=== PATIENT | female | born 1980 | race Asian ===

== ENCOUNTER 2018-03-06 07:11 | Inpatient (IN) | payer BC ==
[~2018-03-06] VITALS: Ht 160 cm; Wt 84.1 kg
[2018-03-06 08:12] LABS: BASOPHILS # (AUTO) 0.05 x10^3/uL (0-0.1); BASOPHILS % (AUTO) 1 % (0-1); EOSINOPHILS # (AUTO) 0.09 x10^3/uL (0-0.4); EOSINOPHILS % (AUTO) 1 % (1-7); LYMPHOCYTES # (AUTO) 2.66 x10^3/uL (1-3.4); LYMPHOCYTES % (AUTO) 29 % (22-44); MD NO; MEAN CORPUSCULAR HEMOGLOBIN 31.7 pg (27.0-34.8); MEAN CORPUSCULAR HGB CONC 34.1 g/dL (32.4-35.8); MEAN PLATELET VOLUME 10.9 fL (7.4-10.4); MONOCYTES # (AUTO) 0.49 x10^3/uL (0.2-0.8); MONOCYTES % (AUTO) 5 % (2-9); NEUTROPHILS # (AUTO) 5.91 x10^3/uL (1.8-6.8); NEUTROPHILS % (AUTO) 64 % (42-75); PLATELET COUNT 208 x10^3/uL (130-400); RED BLOOD COUNT 4.34 x10^6/uL (3.82-5.3); RED CELL DISTRIBUTION WIDTH 12.8 % (9.6-15.2)
[2018-03-06] MEDS ORDERED: LABETALOL 5MG/ML, 20ML ONE (08:15)
[2018-03-06] MEDS: LACTATED RINGERS 1,000 ML IV SCH ×2 (08:20→20:31)
[2018-03-06 08:23] LABS: MICROSCOPIC INDICATED
[2018-03-06 08:24] LABS: ALANINE AMINOTRANSFERASE 23 U/L (12-78); ALBUMIN 2.1 g/dL (3.4-5.0); ANION GAP 7 mmol/L (5-15); CALCIUM 9.1 mg/dL (8.5-10.1); CHLORIDE 115 mmol/L (98-107)
[2018-03-06 08:27] VITALS: BP 174/110
[2018-03-06 08:27] LABS: ALKALINE PHOSPHATASE 78 U/L (45-117); BILIRUBIN, DIRECT < 0.1 mg/dL (0.1-0.2); BILIRUBIN,TOTAL 0.2 mg/dL (0.2-1.0); CREATININE 0.85 mg/dL (0.55-1.02); TOTAL PROTEIN 5.1 g/dL (6.4-8.2)
[2018-03-06] MEDS ORDERED: LABETALOL 20 MG/4 ML IVPush ONE (08:30)
[2018-03-06] MEDS ORDERED: LABETALOL 5MG/ML, 20ML IVPush ONE (08:30)
[2018-03-06] MEDS ORDERED: PLEASE ENTER HEIGHT AND WEIGHT MC SCH (08:30)
[2018-03-06] MEDS ORDERED: BETAMETHASONE 6 MG/ML, 5ML IM ONE (09:17)
[2018-03-06] MEDS ORDERED: MAGNESIUM SULF. PMX 20GM/500ML 500 ML IV ONE ×2 (09:17→14:22)
[2018-03-06] MEDS ORDERED: MAGNESIUM SULFATE PMX 4GM/100M 100 ML ONE (09:17)
[2018-03-06] MEDS ORDERED: LACTATED RINGERS 1,000 ML IV PRN (09:25)
[2018-03-06] MEDS ORDERED: MAGNESIUM SULFATE PMX 4GM/100M 100 ML IVPB ONE (09:30)
[2018-03-06] MEDS ORDERED: LABETALOL 200 MG TABLET PO ONE (09:30)
[2018-03-06] MEDS ORDERED: LABETALOL 200 MG TABLET ONE ×2 (09:34→20:28)
[2018-03-06] MEDS: BETAMETHASONE 6 MG/ML, 5ML IM SCH (09:43)
[2018-03-06] MEDS: MAGNESIUM SULF. PMX 20GM/500ML 500 ML IV SCH ×3 (10:00→22:28)
[2018-03-06] MEDS ORDERED: ACETAMINOPHEN 325 MG TABLET ONE (18:41)
[2018-03-06] MEDS: ACETAMINOPHEN 325 MG TABLET PO PRN (18:43)
[2018-03-06] MEDS: LABETALOL 200 MG TABLET PO SCH (20:30)
[2018-03-07 03:12] LABS: BASOPHILS # (AUTO) 0.03 x10^3/uL (0-0.1); BASOPHILS % (AUTO) 0 % (0-1); EOSINOPHILS % (AUTO) 0 % (1-7); LYMPHOCYTES # (AUTO) 2.27 x10^3/uL (1-3.4); LYMPHOCYTES % (AUTO) 19 % (22-44); MD NO; MEAN CORPUSCULAR HEMOGLOBIN 32.2 pg (27.0-34.8); MEAN CORPUSCULAR HGB CONC 34.6 g/dL (32.4-35.8); MEAN CORPUSCULAR VOLUME 93.3 fL (80-100); MEAN PLATELET VOLUME 11.3 fL (7.4-10.4); MONOCYTES # (AUTO) 0.27 x10^3/uL (0.2-0.8); MONOCYTES % (AUTO) 2 % (2-9); NEUTROPHILS # (AUTO) 9.22 x10^3/uL (1.8-6.8); NEUTROPHILS % (AUTO) 78 % (42-75); PLATELET COUNT 228 x10^3/uL (130-400); RED BLOOD COUNT 4.12 x10^6/uL (3.82-5.3); RED CELL DISTRIBUTION WIDTH 13.2 % (9.6-15.2)
[2018-03-07 03:15] LABS: ALBUMIN 2.1 g/dL (3.4-5.0); ANION GAP 9 mmol/L (5-15); CALCIUM 8.3 mg/dL (8.5-10.1); CHLORIDE 111 mmol/L (98-107)
[2018-03-07 03:18] LABS: ALANINE AMINOTRANSFERASE 23 U/L (12-78); ALKALINE PHOSPHATASE 76 U/L (45-117); BILIRUBIN,TOTAL 0.2 mg/dL (0.2-1.0); TOTAL PROTEIN 5.4 g/dL (6.4-8.2)
[2018-03-07] MEDS: LACTATED RINGERS 1,000 ML IV SCH ×2 (08:12→16:12)
[2018-03-07] MEDS ORDERED: LABETALOL 200 MG TABLET ONE ×3 (08:34→21:59)
[2018-03-07] MEDS: LABETALOL 200 MG TABLET PO SCH ×2 (08:50→22:04)
[2018-03-07] MEDS ORDERED: PRENATAL VIT/IRON/FA 1 EACH TABLET PO SCH (09:00)
[2018-03-07] MEDS ORDERED: MAGNESIUM SULF. PMX 20GM/500ML 500 ML IV ONE (09:06)
[2018-03-07] MEDS: BETAMETHASONE 6 MG/ML, 5ML IM SCH (09:33)
[2018-03-07] MEDS: MAGNESIUM SULF. PMX 20GM/500ML 500 ML IV SCH (09:39)
[2018-03-07 11:31] VITALS: BP 143/93
[2018-03-07] MEDS ORDERED: LABETALOL 200 MG TABLET PO ONE (16:30)
[2018-03-07] MEDS ORDERED: DIPHENHYDRAMINE 25 MG CAPSULE ONE (21:13)
[2018-03-07] MEDS ORDERED: DOCUSATE 100 MG CAPSULE ONE (21:13)
[2018-03-07] MEDS: DOCUSATE 100 MG CAPSULE PO SCH (21:16)
[2018-03-07] MEDS: DIPHENHYDRAMINE 25 MG CAPSULE PO PRN (21:16)
[2018-03-08] MEDS: LACTATED RINGERS 1,000 ML IV SCH ×4 (00:12→16:12)
[2018-03-08] MEDS ORDERED: MAGNESIUM SULF. PMX 20GM/500ML 500 ML IV ONE (05:54)
[2018-03-08] MEDS ORDERED: LABETALOL 200 MG TABLET ONE ×3 (05:54→21:44)
[2018-03-08 05:58] LABS: BASOPHILS # (AUTO) 0.03 x10^3/uL (0-0.1); BASOPHILS % (AUTO) 0 % (0-1); EOSINOPHILS % (AUTO) 0 % (1-7); LYMPHOCYTES # (AUTO) 2.05 x10^3/uL (1-3.4); LYMPHOCYTES % (AUTO) 14 % (22-44); MD NO; MEAN CORPUSCULAR HEMOGLOBIN 32.3 pg (27.0-34.8); MEAN CORPUSCULAR HGB CONC 34.5 g/dL (32.4-35.8); MEAN CORPUSCULAR VOLUME 93.7 fL (80-100); MEAN PLATELET VOLUME 11.1 fL (7.4-10.4); MONOCYTES # (AUTO) 0.59 x10^3/uL (0.2-0.8); MONOCYTES % (AUTO) 4 % (2-9); NEUTROPHILS # (AUTO) 12.14 x10^3/uL (1.8-6.8); NEUTROPHILS % (AUTO) 82 % (42-75); PLATELET COUNT 229 x10^3/uL (130-400); RED BLOOD COUNT 3.95 x10^6/uL (3.82-5.3); RED CELL DISTRIBUTION WIDTH 13.5 % (9.6-15.2)
[2018-03-08] MEDS: MAGNESIUM SULF. PMX 20GM/500ML 500 ML IV SCH (06:04)
[2018-03-08] MEDS: LABETALOL 200 MG TABLET PO SCH ×3 (06:07→21:49)
[2018-03-08 06:11] LABS: ALBUMIN 2.1 g/dL (3.4-5.0); ANION GAP 10 mmol/L (5-15); CHLORIDE 112 mmol/L (98-107)
[2018-03-08 06:15] LABS: ALANINE AMINOTRANSFERASE 21 U/L (12-78); ALKALINE PHOSPHATASE 70 U/L (45-117); BILIRUBIN,TOTAL 0.2 mg/dL (0.2-1.0); CREATININE 0.87 mg/dL (0.55-1.02); TOTAL PROTEIN 5.2 g/dL (6.4-8.2)
[2018-03-08] MEDS: PRENATAL VIT/IRON/FA 1 EACH TABLET PO SCH (09:00)
[2018-03-08] MEDS: DOCUSATE 100 MG CAPSULE PO SCH ×2 (09:00→21:49)
[2018-03-08 20:30] VITALS: BP 152/78
[2018-03-08] MEDS ORDERED: DOCUSATE 100 MG CAPSULE ONE (21:44)
[2018-03-08] MEDS ORDERED: DIPHENHYDRAMINE 25 MG CAPSULE ONE (21:44)
[2018-03-08] MEDS: DIPHENHYDRAMINE 25 MG CAPSULE PO PRN (21:49)
[2018-03-09] MEDS: LACTATED RINGERS 1,000 ML IV SCH ×3 (00:12→16:12)
[2018-03-09 00:41] VITALS: BP 141/78
[2018-03-09] MEDS ORDERED: LABETALOL 200 MG TABLET ONE ×4 (05:18→21:13)
[2018-03-09] MEDS: LABETALOL 200 MG TABLET PO SCH ×3 (05:31→21:30)
[2018-03-09 05:37] VITALS: BP 137/93
[2018-03-09 05:47] LABS: BASOPHILS # (AUTO) 0.05 x10^3/uL (0-0.1); BASOPHILS % (AUTO) 0 % (0-1); EOSINOPHILS # (AUTO) 0.04 x10^3/uL (0-0.4); EOSINOPHILS % (AUTO) 0 % (1-7); LYMPHOCYTES # (AUTO) 3.36 x10^3/uL (1-3.4); LYMPHOCYTES % (AUTO) 25 % (22-44); MD NO; MEAN CORPUSCULAR HEMOGLOBIN 32.2 pg (27.0-34.8); MEAN CORPUSCULAR HGB CONC 34.2 g/dL (32.4-35.8); MEAN CORPUSCULAR VOLUME 94.2 fL (80-100); MEAN PLATELET VOLUME 11.2 fL (7.4-10.4); MONOCYTES # (AUTO) 0.83 x10^3/uL (0.2-0.8); MONOCYTES % (AUTO) 6 % (2-9); NEUTROPHILS # (AUTO) 9.15 x10^3/uL (1.8-6.8); NEUTROPHILS % (AUTO) 68 % (42-75); PLATELET COUNT 215 x10^3/uL (130-400)
[2018-03-09 05:50] LABS: CHLORIDE 114 mmol/L (98-107)
[2018-03-09 05:57] LABS: ALANINE AMINOTRANSFERASE 24 U/L (12-78); ALBUMIN 1.9 g/dL (3.4-5.0); ALKALINE PHOSPHATASE 68 U/L (45-117); BILIRUBIN,TOTAL 0.2 mg/dL (0.2-1.0); CREATININE 0.98 mg/dL (0.55-1.02); TOTAL PROTEIN 4.9 g/dL (6.4-8.2)
[2018-03-09 06:20] LABS: ANION GAP 9 mmol/L (5-15)
[2018-03-09 07:07] LABS: MICROSCOPIC INDICATED
[2018-03-09 07:15] LABS: CREATININE,URINE RANDOM 82.4 mg/dL
[2018-03-09] MEDS: PRENATAL VIT/IRON/FA 1 EACH TABLET PO SCH (09:00)
[2018-03-09] MEDS: DOCUSATE 100 MG CAPSULE PO SCH ×2 (09:00→20:15)
[2018-03-09] MEDS ORDERED: DIPHENHYDRAMINE 25 MG CAPSULE PO PRN (13:30)
[2018-03-09] MEDS ORDERED: DIPHENHYDRAMINE 25 MG CAPSULE ONE ×2 (13:45→21:13)
[2018-03-09] MEDS: DIPHENHYDRAMINE 25 MG CAPSULE PO PRN ×2 (13:51→21:30)
[2018-03-09 19:30] VITALS: BP 142/85
[2018-03-09] MEDS: MAGNESIUM SULF. PMX 20GM/500ML 500 ML IV SCH (21:01)
[2018-03-10] MEDS: LACTATED RINGERS 1,000 ML IV SCH ×3 (00:12→21:14)
[2018-03-10 03:34] VITALS: BP 152/76
[2018-03-10] MEDS ORDERED: LABETALOL 200 MG TABLET ONE (05:34)
[2018-03-10] MEDS: LABETALOL 200 MG TABLET PO SCH (05:35)
[2018-03-10 05:56] LABS: BASOPHILS # (AUTO) 0.04 x10^3/uL (0-0.1); BASOPHILS % (AUTO) 0 % (0-1); EOSINOPHILS # (AUTO) 0.14 x10^3/uL (0-0.4); EOSINOPHILS % (AUTO) 1 % (1-7); LYMPHOCYTES # (AUTO) 3.52 x10^3/uL (1-3.4); LYMPHOCYTES % (AUTO) 28 % (22-44); MD NO; MEAN CORPUSCULAR HEMOGLOBIN 32.7 pg (27.0-34.8); MEAN CORPUSCULAR VOLUME 93.4 fL (80-100); MEAN PLATELET VOLUME 11.1 fL (7.4-10.4); MONOCYTES # (AUTO) 1.06 x10^3/uL (0.2-0.8); MONOCYTES % (AUTO) 9 % (2-9); NEUTROPHILS % (AUTO) 62 % (42-75); PLATELET COUNT 199 x10^3/uL (130-400); RED BLOOD COUNT 3.98 x10^6/uL (3.82-5.3); RED CELL DISTRIBUTION WIDTH 13.1 % (9.6-15.2)
[2018-03-10 06:00] LABS: ALBUMIN 1.8 g/dL (3.4-5.0); ANION GAP 9 mmol/L (5-15); CALCIUM 8.4 mg/dL (8.5-10.1); CHLORIDE 115 mmol/L (98-107)
[2018-03-10 06:03] LABS: ALANINE AMINOTRANSFERASE 26 U/L (12-78); ALKALINE PHOSPHATASE 67 U/L (45-117); BILIRUBIN,TOTAL 0.4 mg/dL (0.2-1.0); CREATININE 0.86 mg/dL (0.55-1.02); TOTAL PROTEIN 4.6 g/dL (6.4-8.2)
[2018-03-10 06:39] VITALS: BP 149/86
[2018-03-10] MEDS ORDERED: LABETALOL 100 MG TABLET ONE (07:54)
[2018-03-10] MEDS ORDERED: LABETALOL 100 MG TABLET PO SCH (09:00)
[2018-03-10] MEDS ORDERED: LABETALOL 300 MG TABLET ONE (13:48)
[2018-03-10] MEDS: LABETALOL 300 MG TABLET PO SCH ×2 (13:49→22:00)
[2018-03-10] MEDS ORDERED: LABETALOL 5MG/ML, 20ML IVPush ONE ×2 (16:00)
[2018-03-10] MEDS ORDERED: hydrALAzine 20 MG/ML, 1ML IVPush ONE (16:00)
[2018-03-10] MEDS ORDERED: LABETALOL 20 MG/4 ML IVPush ONE (16:00)
[2018-03-10] MEDS ORDERED: LABETALOL 5MG/ML, 20ML ONE (16:24)
[2018-03-10] MEDS ORDERED: hydrALAzine 20 MG/ML, 1ML ONE (16:46)
[2018-03-10] MEDS ORDERED: hydrALAzine 20 MG/ML, 1ML IV ONE ×2 (17:00→17:30)
[2018-03-10 17:50] LABS: BASOPHILS # (AUTO) 0.06 x10^3/uL (0-0.1); BASOPHILS % (AUTO) 0 % (0-1); EOSINOPHILS # (AUTO) 0.22 x10^3/uL (0-0.4); EOSINOPHILS % (AUTO) 2 % (1-7); LYMPHOCYTES # (AUTO) 3.87 x10^3/uL (1-3.4); LYMPHOCYTES % (AUTO) 29 % (22-44); MD NO; MEAN CORPUSCULAR HEMOGLOBIN 32.5 pg (27.0-34.8); MEAN CORPUSCULAR HGB CONC 34.5 g/dL (32.4-35.8); MEAN PLATELET VOLUME 11.1 fL (7.4-10.4); MONOCYTES # (AUTO) 1.22 x10^3/uL (0.2-0.8); MONOCYTES % (AUTO) 9 % (2-9); NEUTROPHILS # (AUTO) 7.85 x10^3/uL (1.8-6.8); NEUTROPHILS % (AUTO) 59 % (42-75); PLATELET COUNT 207 x10^3/uL (130-400); RED BLOOD COUNT 4.06 x10^6/uL (3.82-5.3); RED CELL DISTRIBUTION WIDTH 13.3 % (9.6-15.2)
[2018-03-10] MEDS ORDERED: MAGNESIUM SULF. PMX 20GM/500ML 500 ML IV ONE (18:00)
[2018-03-10 18:02] LABS: ALANINE AMINOTRANSFERASE 29 U/L (12-78); ALBUMIN 1.9 g/dL (3.4-5.0); ANION GAP 7 mmol/L (5-15); CALCIUM 9.2 mg/dL (8.5-10.1); CHLORIDE 114 mmol/L (98-107); CREATININE 0.89 mg/dL (0.55-1.02)
[2018-03-10 18:04] LABS: ALKALINE PHOSPHATASE 73 U/L (45-117); BILIRUBIN,TOTAL 0.2 mg/dL (0.2-1.0)
[2018-03-10] MEDS ORDERED: LACTATED RINGERS 1,000 ML IV SCH (18:06)
[2018-03-10] MEDS ORDERED: OXYTOCIN 30U/ 0.9% NaCL 500ML 500 ML IV SCH ×2 (18:06→21:14)
[2018-03-10 18:07] LABS: BILIRUBIN, DIRECT < 0.1 mg/dL (0.1-0.2)
[2018-03-10] MEDS ORDERED: NEWBORN KIT ONE (18:21)
[2018-03-10] MEDS ORDERED: SODIUM CITRATE/CITRIC ACID 30 ML UDC PO ONE (18:30)
[2018-03-10] MEDS ORDERED: MAGNESIUM SULFATE 6 GM in SODIUM CHLORIDE 0.9% 150 ML IV ONE (18:30)
[2018-03-10] MEDS ORDERED: LACTATED RINGERS 1,000 ML IVBOLUS ONE (18:30)
[2018-03-10] MEDS ORDERED: METOCLOPRAMIDE 5 MG/ML, 2ML IV ONE (18:30)
[2018-03-10] MEDS ORDERED: ONDANSETRON 2MG/ML, 2ML ONE ×2 (18:31→21:36)
[2018-03-10] MEDS: MAGNESIUM SULF. PMX 20GM/500ML 500 ML IV SCH (18:34)
[2018-03-10] MEDS ORDERED: ONDANSETRON 2MG/ML, 2ML IVPush ONE (19:00)
[2018-03-10] MEDS ORDERED: METOCLOPRAMIDE 5 MG/ML, 2ML ONE (19:24)
[2018-03-10] MEDS ORDERED: SODIUM CITRATE/CITRIC ACID 30 ML UDC ONE (19:24)
[2018-03-10] MEDS ORDERED: MISOPROSTOL 200 MCG TABLET ONE (19:50)
[2018-03-10] MEDS ORDERED: morphine SULFATE/PF 0.5 MG/ML, 10ML ONE (20:31)
[2018-03-10] MEDS ORDERED: morphine SULFATE 10 MG/ML, 1ML IVPush PRN (21:30)
[2018-03-10] MEDS ORDERED: SIMETHICONE 80 MG CHEW TAB PO PRN (21:30)
[2018-03-10] MEDS ORDERED: OXYcodone IR 5MG TABLET PO PRN (21:30)
[2018-03-10] MEDS ORDERED: MISOPROSTOL 200 MCG TABLET PR PRN (21:30)
[2018-03-10] MEDS ORDERED: ONDANSETRON 2MG/ML, 2ML IV PRN (21:30)
[2018-03-10] MEDS ORDERED: MEASLES,MUMPS&RUBELLA VACC/PF 0.5 ML SQ-VACC PRN (21:30)
[2018-03-10] MEDS ORDERED: RHOGAM FROM BLOOD BANK 1 NOTE EA IM/IV ONE (21:30)
[2018-03-10] MEDS ORDERED: CALCIUM CARBONATE 500 MG TAB.CHEW PO PRN (21:30)
[2018-03-10] MEDS ORDERED: IBUPROFEN 600 MG TABLET PO PRN (21:30)
[2018-03-10] MEDS ORDERED: DIPH,PERTUSS(ACELL),TET VAC/PF NC IM-VACC PRN (21:30)
[2018-03-10] MEDS ORDERED: WATER-INJECTION,STERILE 10 ML IV ONE (21:36)
[2018-03-10] MEDS ORDERED: OXYTOCIN 10 UNITS/ML, 1ML ONE (21:36)
[2018-03-10] MEDS ORDERED: PHENYLEPHRINE 10 MG/ML ONE (21:36)
[2018-03-10] MEDS ORDERED: EPHEDRINE 50 MG/ML, 1ML ONE (21:36)
[2018-03-10] MEDS ORDERED: CEFAZOLIN 1,000 MG ONE (21:36)
[2018-03-10] MEDS ORDERED: GLYCOPYRROLATE 0.4 MG/2 ML, 2ML ONE ×2 (21:36)
[2018-03-10] MEDS ORDERED: DIPHENHYDRAMINE 50 MG/ML, 1ML ONE (21:37)
[2018-03-10] MEDS ORDERED: OXYTOCIN 30U/ 0.9% NaCL 500ML 500 ML ONE (22:41)
[2018-03-10] MEDS ORDERED: KETOROLAC 30 MG/1 ML ONE (22:48)
[2018-03-10] MEDS: KETOROLAC 30 MG/1 ML IV SCH (22:49)
[2018-03-11] MEDS ORDERED: MAGNESIUM SULF. PMX 20GM/500ML 500 ML IV ONE ×2 (01:13→12:19)
[2018-03-11] MEDS: MAGNESIUM SULF. PMX 20GM/500ML 500 ML IV SCH (01:16)
[2018-03-11] MEDS ORDERED: OXYcodone/APAP 5/325MG TABLET ONE ×2 (02:43→18:19)
[2018-03-11] MEDS: OXYcodone/APAP 5/325MG TABLET PO PRN ×2 (02:45→18:21)
[2018-03-11] MEDS ORDERED: KETOROLAC 30 MG/1 ML ONE ×4 (05:05→22:25)
[2018-03-11] MEDS: KETOROLAC 30 MG/1 ML IV SCH ×4 (05:10→22:29)
[2018-03-11] MEDS: LACTATED RINGERS 1,000 ML IV SCH ×5 (05:14→21:14)
[2018-03-11] MEDS ORDERED: LABETALOL 300 MG TABLET ONE ×3 (05:36→22:06)
[2018-03-11] MEDS: LABETALOL 300 MG TABLET PO SCH ×3 (05:39→22:29)
[2018-03-11 06:05] LABS: ALBUMIN 1.9 g/dL (3.4-5.0); ANION GAP 9 mmol/L (5-15); CALCIUM 8.6 mg/dL (8.5-10.1); CHLORIDE 109 mmol/L (98-107); CREATININE 0.84 mg/dL (0.55-1.02)
[2018-03-11 06:09] LABS: MEAN CORPUSCULAR HEMOGLOBIN 32.8 pg (27.0-34.8); MEAN CORPUSCULAR HGB CONC 34.6 g/dL (32.4-35.8); MEAN CORPUSCULAR VOLUME 94.8 fL (80-100); MEAN PLATELET VOLUME 10.9 fL (7.4-10.4); PLATELET COUNT 192 x10^3/uL (130-400); RED BLOOD COUNT 4.03 x10^6/uL (3.82-5.3); RED CELL DISTRIBUTION WIDTH 13.1 % (9.6-15.2)
[2018-03-11 06:12] LABS: ALANINE AMINOTRANSFERASE 29 U/L (12-78); ALKALINE PHOSPHATASE 65 U/L (45-117); BILIRUBIN,TOTAL 0.2 mg/dL (0.2-1.0); TOTAL PROTEIN 4.9 g/dL (6.4-8.2)
[2018-03-11] MEDS ORDERED: MAGNESIUM SULF. PMX 20GM/500ML 500 ML IV SCH (06:30)
[2018-03-11 06:46] LABS: BASOPHILS # (AUTO) 0.04 x10^3/uL (0-0.1); BASOPHILS % (AUTO) 0 % (0-1); EOSINOPHILS # (AUTO) 0.11 x10^3/uL (0-0.4); EOSINOPHILS % (AUTO) 1 % (1-7); LYMPHOCYTES # (AUTO) 2.77 x10^3/uL (1-3.4); LYMPHOCYTES % (AUTO) 15 % (22-44); MD SCAN; MONOCYTES # (AUTO) 1.13 x10^3/uL (0.2-0.8); MONOCYTES % (AUTO) 6 % (2-9); NEUTROPHILS # (AUTO) 14.12 x10^3/uL (1.8-6.8); NEUTROPHILS % (AUTO) 78 % (42-75)
[2018-03-11 08:04] VITALS: BP 159/94
[2018-03-11] MEDS ORDERED: PRENATAL VIT/IRON/FA 1 EACH TABLET ONE (08:40)
[2018-03-11] MEDS: PRENATAL VIT/IRON/FA 1 EACH TABLET PO SCH (08:55)
[2018-03-11] MEDS ORDERED: niFEDipine ER 30 MG TABLET.ER ONE (10:13)
[2018-03-11] MEDS: niFEDipine ER 30 MG TABLET.ER PO SCH (10:17)
[2018-03-11] MEDS ORDERED: ACETAMINOPHEN 325 MG TABLET ONE (22:23)
[2018-03-11] MEDS ORDERED: DOCUSATE 100 MG CAPSULE ONE (22:25)
[2018-03-11] MEDS: DOCUSATE 100 MG CAPSULE PO PRN (22:28)
[2018-03-11] MEDS: ACETAMINOPHEN 325 MG TABLET PO PRN (22:29)
[2018-03-12] MEDS: LACTATED RINGERS 1,000 ML IV SCH ×6 (03:14→23:14)
[2018-03-12] MEDS ORDERED: KETOROLAC 30 MG/1 ML ONE ×2 (05:02→11:07)
[2018-03-12] MEDS: KETOROLAC 30 MG/1 ML IV SCH ×3 (05:06→18:02)
[2018-03-12] MEDS ORDERED: LABETALOL 300 MG TABLET ONE ×3 (05:58→21:58)
[2018-03-12 08:02] VITALS: BP 144/89
[2018-03-12] MEDS ORDERED: DOCUSATE 100 MG CAPSULE ONE (08:53)
[2018-03-12] MEDS ORDERED: niFEDipine ER 30 MG TABLET.ER ONE (08:53)
[2018-03-12] MEDS: PRENATAL VIT/IRON/FA 1 EACH TABLET PO SCH (09:00)
[2018-03-12] MEDS: niFEDipine ER 30 MG TABLET.ER PO SCH (09:06)
[2018-03-12] MEDS: DOCUSATE 100 MG CAPSULE PO PRN (09:06)
[2018-03-12] MEDS: LABETALOL 300 MG TABLET PO SCH ×3 (14:00→22:01)
[2018-03-12] MEDS ORDERED: OXYcodone/APAP 5/325MG TABLET ONE (17:12)
[2018-03-12] MEDS: OXYcodone/APAP 5/325MG TABLET PO PRN (17:13)
[2018-03-12 17:50] VITALS: BP 133/91
[2018-03-12 21:50] VITALS: BP 145/88
[2018-03-13] VITALS (8 sets, daily range): BP systolic 134–146; BP diastolic 86–109
[2018-03-13] MEDS: OXYcodone/APAP 5/325MG TABLET PO PRN ×3 (02:13→19:29)
[2018-03-13] MEDS: LACTATED RINGERS 1,000 ML IV SCH ×5 (05:14→21:14)
[2018-03-13] MEDS ORDERED: LABETALOL 300 MG TABLET ONE (05:38)
[2018-03-13] MEDS: LABETALOL 300 MG TABLET PO SCH ×3 (05:51→22:40)
[2018-03-13] MEDS: DOCUSATE 100 MG CAPSULE PO PRN ×2 (05:51→19:29)
[2018-03-13] MEDS: niFEDipine ER 30 MG TABLET.ER PO SCH (09:03)
[2018-03-13] MEDS: PRENATAL VIT/IRON/FA 1 EACH TABLET PO SCH (09:03)
[2018-03-13] MEDS ORDERED: OXYC-302 PO (10:48)
[2018-03-13] MEDS ORDERED: LABE300T2 PO (10:55)
[2018-03-13] MEDS ORDERED: NIFE30TA2 PO (10:56)
== END 2018-03-13 22:50 | disposition home or self-care (01) | DRG 766 ==
LOC: LDOP 07:11 → LDIP 08:28 → 2NW 03-12 17:12
PROVIDERS: ADMIT Obstetrics & Gynecology; ATTEND Obstetrics & Gynecology
PROC: 10D00Z1 Extraction of Products of Conception, Low, Open Approach (ICD-10-PCS; principal; 2018-03-10)
DX: O36.8130 Decreased fetal movements, third trimester, not applicable or unspecified (principal); D25.9 Leiomyoma of uterus, unspecified; O14.14 Severe pre-eclampsia complicating childbirth; O24.420 Gestational diabetes mellitus in childbirth, diet controlled; O32.1XX0 Maternal care for breech presentation, not applicable or unspecified; O34.13 Maternal care for benign tumor of corpus uteri, third trimester; R09.02 Hypoxemia; Z37.0 Single live birth; Z3A.30 30 weeks gestation of pregnancy; Z80.3 Family history of malignant neoplasm of breast; Z82.3 Family history of stroke; Z82.49 Family history of ischemic heart disease and other diseases of the circulatory system; Z83.3 Family history of diabetes mellitus; Z87.891 Personal history of nicotine dependence; Z90.89 Acquired absence of other organs
CPT/HCPCS: 36415; 71045; 76805; 80053; 81001; 81050; 82248; 82570; 82803; 82962; 83615; 83735; 84156; 84550; 85025; 86850; 86900; 87081; 90715; J0690; J0702; J1885; J2274; J2405; J3475; J0360; J1200; J2370; J2590; J2765; J3490; J7120; Q0163

== ENCOUNTER 2018-03-15 20:06 | Inpatient (IN) | payer BC ==
[~2018-03-15] VITALS: Ht 160 cm; Wt 78.9 kg
[~2018-03-15 20:06] MED LIST: LABE300T2 PO; NIFE30TA2 PO; OXYC-302 PO
[2018-03-15] MEDS ORDERED: LABETALOL 5MG/ML, 20ML ONE (21:24)
[2018-03-15] MEDS ORDERED: LABETALOL 5MG/ML, 20ML IVPush ONE (21:30)
[2018-03-15] MEDS ORDERED: SODIUM CHLORIDE FLUSH 10ML SYR IVF ONE (21:30)
[2018-03-15 21:45] LABS: BASOPHILS # (AUTO) 0.04 x10^3/uL (0-0.1); BASOPHILS % (AUTO) 0 % (0-1); EOSINOPHILS # (AUTO) 0.34 x10^3/uL (0-0.4); EOSINOPHILS % (AUTO) 3 % (1-7); LYMPHOCYTES # (AUTO) 2.49 x10^3/uL (1-3.4); LYMPHOCYTES % (AUTO) 24 % (22-44); MD NO; MEAN CORPUSCULAR HEMOGLOBIN 32.4 pg (27.0-34.8); MEAN CORPUSCULAR HGB CONC 34.2 g/dL (32.4-35.8); MEAN CORPUSCULAR VOLUME 94.7 fL (80-100); MONOCYTES # (AUTO) 0.61 x10^3/uL (0.2-0.8); MONOCYTES % (AUTO) 6 % (2-9); NEUTROPHILS # (AUTO) 6.77 x10^3/uL (1.8-6.8); NEUTROPHILS % (AUTO) 66 % (42-75); PLATELET COUNT 268 x10^3/uL (130-400); RED BLOOD COUNT 3.99 x10^6/uL (3.82-5.3); RED CELL DISTRIBUTION WIDTH 13.6 % (9.6-15.2)
[2018-03-15 21:57] LABS: ALANINE AMINOTRANSFERASE 56 U/L (12-78); ALBUMIN 2.4 g/dL (3.4-5.0); ANION GAP 7 mmol/L (5-15); CALCIUM 9.3 mg/dL (8.5-10.1); CHLORIDE 111 mmol/L (98-107); CREATININE 0.84 mg/dL (0.55-1.02)
[2018-03-15 22:01] LABS: ALKALINE PHOSPHATASE 67 U/L (45-117); BILIRUBIN,TOTAL 0.2 mg/dL (0.2-1.0); TOTAL PROTEIN 6.2 g/dL (6.4-8.2); TROPONIN I < 0.015 ng/mL (0.000-0.045)
[2018-03-15 22:25] LABS: MICROSCOPIC AUTO
[2018-03-15 22:28] LABS: CULTURE INDICATED? NO
[2018-03-15] MEDS ORDERED: hydrALAzine 20 MG/ML, 1ML ONE (22:43)
[2018-03-15] MEDS ORDERED: LABETALOL 5MG/ML 40ML VIAL IVPush ONE (23:00)
[2018-03-15] MEDS ORDERED: ONDANSETRON ODT 4 MG PO PRN (23:00)
[2018-03-15] MEDS ORDERED: hydrALAzine 20 MG/ML, 1ML IVPush ONE ×2 (23:00)
[2018-03-15] MEDS ORDERED: niFEDipine ER 30 MG TABLET.ER PO SCH (23:00)
[2018-03-15] MEDS ORDERED: CALCIUM CARBONATE 500 MG TAB.CHEW PO PRN (23:00)
[2018-03-15] MEDS: LABETALOL 300 MG TABLET PO SCH (23:30)
[2018-03-15] MEDS ORDERED: LABETALOL 300 MG TABLET ONE (23:30)
[2018-03-15] MEDS ORDERED: niFEDipine ER 30 MG TABLET.ER ONE (23:45)
[2018-03-16] MEDS ORDERED: OXYcodone/APAP 5/325MG TABLET ONE ×3 (03:53→21:42)
[2018-03-16] MEDS: OXYcodone/APAP 5/325MG TABLET PO PRN ×3 (03:54→21:43)
[2018-03-16] MEDS ORDERED: LABETALOL 300 MG TABLET ONE ×3 (05:28→21:36)
[2018-03-16] MEDS: LABETALOL 300 MG TABLET PO SCH ×3 (05:41→21:37)
[2018-03-16] MEDS ORDERED: ACETAMINOPHEN 325 MG TABLET ONE ×3 (07:37→17:27)
[2018-03-16 07:39] VITALS: BP 111/78
[2018-03-16] MEDS: ACETAMINOPHEN 325 MG TABLET PO PRN ×3 (08:34→17:29)
[2018-03-16] MEDS ORDERED: niFEDipine ER 60 MG TABLET.ER PO ONE (08:42)
[2018-03-16] MEDS ORDERED: PRENATAL VIT/IRON/FA 1 EACH TABLET ONE (08:42)
[2018-03-16] MEDS: PRENATAL VIT/IRON/FA 1 EACH TABLET PO SCH (08:46)
[2018-03-16] MEDS ORDERED: niFEDipine ER 60 MG TABLET.ER PO SCH (09:00)
[2018-03-16] MEDS ORDERED: niFEDipine ER 30 MG TABLET.ER PO SCH (09:00)
[2018-03-16 11:35] VITALS: BP 119/82
[2018-03-16 11:39] LABS: BASOPHILS # (AUTO) 0.03 x10^3/uL (0-0.1); BASOPHILS % (AUTO) 0 % (0-1); EOSINOPHILS # (AUTO) 0.28 x10^3/uL (0-0.4); EOSINOPHILS % (AUTO) 3 % (1-7); LYMPHOCYTES % (AUTO) 23 % (22-44); MD NO; MEAN CORPUSCULAR HEMOGLOBIN 32.2 pg (27.0-34.8); MEAN CORPUSCULAR HGB CONC 34.2 g/dL (32.4-35.8); MEAN PLATELET VOLUME 8.3 fL (7.4-10.4); MONOCYTES # (AUTO) 0.44 x10^3/uL (0.2-0.8); MONOCYTES % (AUTO) 5 % (2-9); NEUTROPHILS # (AUTO) 6.32 x10^3/uL (1.8-6.8); NEUTROPHILS % (AUTO) 69 % (42-75); PLATELET COUNT 288 x10^3/uL (130-400); RED BLOOD COUNT 4.09 x10^6/uL (3.82-5.3); RED CELL DISTRIBUTION WIDTH 14.1 % (9.6-15.2)
[2018-03-16 11:53] LABS: ALBUMIN 2.5 g/dL (3.4-5.0); ANION GAP 7 mmol/L (5-15); CHLORIDE 110 mmol/L (98-107)
[2018-03-16 11:57] LABS: ALANINE AMINOTRANSFERASE 53 U/L (12-78); ALKALINE PHOSPHATASE 69 U/L (45-117); BILIRUBIN,TOTAL 0.3 mg/dL (0.2-1.0); CREATININE 0.72 mg/dL (0.55-1.02); TOTAL PROTEIN 6.3 g/dL (6.4-8.2)
[2018-03-16 13:45] VITALS: BP 131/87
[2018-03-16 17:00] VITALS: BP 133/91
[2018-03-16 18:31] VITALS: BP 127/87
[2018-03-17] MEDS ORDERED: LABETALOL 300 MG TABLET ONE (06:14)
[2018-03-17] MEDS: LABETALOL 300 MG TABLET PO SCH (06:16)
[2018-03-17] MEDS ORDERED: OXYcodone/APAP 5/325MG TABLET ONE (07:55)
[2018-03-17] MEDS: OXYcodone/APAP 5/325MG TABLET PO PRN (07:58)
[2018-03-17] MEDS ORDERED: niFEDipine ER 60 MG TABLET.ER PO ONE (08:50)
[2018-03-17] MEDS ORDERED: PRENATAL VIT/IRON/FA 1 EACH TABLET ONE (08:50)
[2018-03-17] MEDS: PRENATAL VIT/IRON/FA 1 EACH TABLET PO SCH (08:55)
[2018-03-17] MEDS ORDERED: niFEDipine ER 60 MG TABLET.ER PO SCH (09:00)
== END 2018-03-17 15:23 | disposition home or self-care (01) | DRG 776 ==
LOC: ED 23:15 → EDIP 23:32 → LDIP 23:40
PROVIDERS: ADMIT Obstetrics & Gynecology; ATTEND Hospitalist
DX: O14.95 Unspecified pre-eclampsia, complicating the puerperium (principal); Z80.3 Family history of malignant neoplasm of breast; Z82.3 Family history of stroke; Z82.49 Family history of ischemic heart disease and other diseases of the circulatory system; Z83.3 Family history of diabetes mellitus
CPT/HCPCS: 36415; 80053; 81001; 83880; 84484; 84550; 85025; 93005; 96374; 96375; J0360